=== PATIENT | female | born 1990 | race Two or more races ===

== ENCOUNTER → 2024-09-25 | Outpatient (CLI) | payer BC, SELFPAY ==
[2024-09-25 12:58] LABS: Misc Send Out* See Sep Rpt
[2024-09-25 14:15] LABS: Beta HCG,Quantitative 3420 mIU/mL (<5.0)
[2024-09-29 06:44] LABS: PTT-LA Screen 27 seconds (< OR = 40); dRVVT Screen 34 seconds (< OR = 45)
[2024-10-03 11:17] LABS: Cardiolipin Ab (IgA) <2.0 APL-U/mL; Cardiolipin Ab (IgG) <2.0 GPL-U/mL
[2024-10-05 06:57] LABS: Cardiolipin Ab (IgM) <2.0 MPL-U/mL; Progesterone,LC/MS* 3.3 ng/mL
== END | disposition home or self-care (01) ==
LOC: COPL 11:56
PROVIDERS: Referring Provider Specialist; Visit Provider Specialist
DX: Z01.89 Encounter for other specified special examinations (principal)
CPT/HCPCS: 36415; 83516; 84144; 84702; 85613; 85730; 86146; 86147; 88230; 88262

== ENCOUNTER → 2024-10-05 | Outpatient (CLI) | payer BC, SELFPAY ==
[2024-10-05 16:27] LABS: Misc Send Out* See Sep Rpt
[2024-10-05 17:45] LABS: Beta HCG,Quantitative 17 mIU/mL (<5.0)
[2024-10-15 03:04] LABS: Cardiolipin Ab (IgA) <2.0 APL-U/mL; Cardiolipin Ab (IgG) <2.0 GPL-U/mL
[2024-10-15 07:20] LABS: B2-Glycoprotein I Ab IgA <2.0 U/mL; B2-Glycoprotein I Ab IgG <2.0 U/mL; B2-Glycoprotein I Ab IgM <2.0 U/mL; Cardiolipin Ab (IgM) <2.0 MPL-U/mL; Progesterone,LC/MS* <0.1 ng/mL
== END | disposition home or self-care (01) ==
LOC: COPL 15:57
PROVIDERS: Referring Provider Specialist; Visit Provider Specialist
DX: Z34.81 Encounter for supervision of other normal pregnancy, first trimester (principal); O26.20 Pregnancy care for patient with recurrent pregnancy loss, unspecified trimester
CPT/HCPCS: 36415; 84144; 84702; 85613; 85730; 86146; 86147

== ENCOUNTER 2025-06-14 11:10 | Outpatient (AMB) | payer BC, SELFPAY ==
[2025-06-14 11:47] VITALS: BP 135/82; PULSE 68; RESP 18; TEMP 36.5; O2SAT 95; BMI 40.8
--- NOTE | 2025-06-14 11:47 | AMB.GYNCLNOT ---
Vital Signs 06/14/25 11:47 Height 1.55 m Height Method Stated Weight 97.976 kg Weight Measurement Method Standing Scale BMI 40.8 BP 135/82 H Blood Pressure Source Automatic Cuff Blood Pressure Location Right Upper Arm Position Sitting Respiration 18 Pulse 68 Pulse Source Monitor Temp 97.7 F Temp Source Temporal Artery Scan Pulse Oximetry (%) 95 Oxygen Delivery Method Room Air Allergies/Home Meds Allergies & Medications Allergies NKA* Allergy (Uncoded 06/14/25 11:53) Medication Reconciliation letrozole 2.5 mg tablet 2.5 mg PO QDAY 5 days #5 tabs 06/14/25 [Rx] metformin 500 mg tablet 500 mg PO QDAY 90 days #90 tabs 06/14/25 [Rx] Intake Visit Data Collection New Patient or Established: Established Patient (seen at [facility] within 3 years) Reason for Visit:: FERTILITY Seen by Clinical Staff ONLY (RN/MA): No Snow Plow Operator Required: No Do You Feel Safe at Home: Yes Authorities Contacted: N/A PCP or OBGYN visit in last 3 months: No Hx Now: No Are you currently on any form of Control: No Last menstrual period: 04/27/25 Pain Present Currently: No Pain Scale Used: Church-Rodriguez/Numerical Pain scale:: 0 Smoking Status Smoking Status: Never smoker Immunizations Flu Vaccine in the Last 12 Months: No Flu Vaccine Exclusion Criteria: 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 Internship History Menstrual regularity: regular Flow: normal Monthly: Yes How many days does period last: 4 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 1. Little interest or pleasure in doing things: not at all 2. Feeling down, depressed, or hopeless: not at all Total score: 0 PHQ-9 3. Trouble falling or staying asleep, or sleeping too much: Not at all 4. Feeling tired or having little energy: Not at all 5. Poor appetite or overeating: Not at all 6. Feeling bad about yourself - or that you are a failure or have let yourself or your family down: Not at all 7. Trouble concentrating on things, such as reading the newspaper or watching television: Not at all 8. Moving or speaking so slowly that other people could have noticed? - Or the opposite - being so fidgety or restless that you have been moving around a lot more than usual: not at all 9. Thoughts that you would be better off or of hurting yourself in some way: Not at all Total score: 0 If you checked off any problems, how difficult have these problems made it for you to do your work, take care of things at home, or get along with other people?: not difficult at all Source: Developed by Drs. Jose Steve, Candida Moody, Mauricio South and colleagues, with an educational alicia from [employer]. Depression screen completed yes Social History Living Situation History Marital Status: Lives With: Family Housing: House Tobacco History Smoking Status: Never smoker Second Hand Smoke Exposure: No Alcohol History Alcohol Intake: Current Domestic Abuse History Do You Feel Safe at Home: Yes History of Present Illness HPI Narrative Trying to get for a couple of years, 2 early miscarriages Patient is a [id number] presenting for fertility consultation after trying to conceive for a couple of years with two early miscarriages since her IUD removal in 2021. The patient has one child delivered at 37 weeks in 2011, conceived naturally. She had an IUD for 10 years which was removed in 2021, and has not used control since then. She has experienced two first trimester losses since the IUD removal. She has been actively trying to conceive for over a year using LH testing kits that sync with her phone, tracking cervical mucus, and timing intercourse accordingly. Her menstrual periods are irregular and described as different. This month she did not have a period but had tissue come out. She reports improved LH peaks after starting metformin 500 mg once daily, which was prescribed by a nurse practitioner for insulin resistance. The patient takes self-researched fertility supplements including a fertility booster, inositol, fish oil, and NAC, stating she wants her eggs to be healthy given her age. She is adherent to the prescribed metformin regimen. She engages in weightlifting for exercise. She had a pelvic ultrasound after her September miscarriage at [facility] with Dr. Oliver, who performed a full panel of tests. Her partner has had sperm testing which showed normal count and 62% motility. Medical History: - Insulin resistance, diagnosed by nurse practitioner Obstetric History: - GTPAL: G3 T1 L1 - Two early miscarriages in the first trimester since 2021 - Delivered one child at 37 weeks gestation in 2011, conceived naturally Medications: - Fertility booster supplement - Inositol - Fish oil - NAC (N-acetylcysteine) - Metformin 500 mg daily Social History: - Engages in weightlifting for exercise Diagnostic Test Results and Labs: - Pelvic ultrasound (September 2023): Performed at [facility] with Dr. Oliver following miscarriage - AMH: 2.9 (good ovarian reserve) - FSH: Normal - LH: Normal - Prolactin: Normal - Hemoglobin A1c: 5.3 - Lupus panel: Negative - Cardiolipin IgG: Negative - Cardiolipin IgA: Negative - Cardiolipin IgM: Negative - Progesterone: 3.3 - Beta-HCG: Performed after miscarriage - Partner's sperm analysis: Normal count, motility 62% Exam General General Appearance: alert, in no apparent distress and healthy appearing Head Head exam: atraumatic Neck Neck exam: Present normal inspection and trachea midline Chest Chest inspection: Present normal inspection and symmetric chest wall rise External exam: Present normal external exam; Absent tenderness Neuro Neurological exam: Present oriented X3 Psych Psychiatric exam: Present normal affect and normal mood Office Procedures [facility] Clinic LOC & Office Proc's Nursing/Assessment Patient Status: Established Patient OB Clinic Nursing Assessment: Medication Reconciliation, Update PMH in EMR and Vital Signs OB Clinic Coordination of Care: Complex Care and Chronic Disease 1-5, Education Complex Pt/Fam, Consent,records obtained, informed consent, Lab and Imaging orders, Results/Orders obtained and Staff clarify orders Established Patient Charge Established Patient Point Assignment: 110 Established Patient Point Charge: EP Level 3 (80-115) Results Urine HCG Urine HCG Negative Last Edit by Arabella Castillo MA on 06/14/25 12:01 Assessment & Plan Diagnosis / Problem List (1) Anovulation: Status: Acute Plan Infertility with recurrent loss Assessment: Patient has been trying to conceive for over a year with two first trimester losses since IUD removal in 2021. She has been tracking ovulation with LH test kits and cervical mucus monitoring. Laboratory workup shows good ovarian reserve with AMH 2.9, normal FSH, LH, and prolactin levels. Lupus panel is negative including cardiolipin antibodies. A1c is 5.3. She has insulin resistance and irregular periods, currently taking metformin 500 mg daily with improved LH peaks noted. Recent ultrasound performed at [facility] showed normal findings. Partner's sperm analysis shows normal count with 62% motility. Plan: - Start letrozole for ovulation induction, beginning on day 3 of menstrual cycle for 5 days - Continue metformin 500 mg once daily with largest meal to avoid hypoglycemia - Check for ovulation on cycle day 12 and time intercourse within 24-48 hours of LH peak - Partner to refrain from intercourse the day before ovulation to optimize sperm count - Partner recommendations: maintain health, avoid alcohol, take multivitamin with zinc, consider smoking cessation - Recommend cardiovascular exercise with goal of 2 hours of zone 2 exercise per week for metabolic health - Follow-up appointment in 2 months for fertility reassessment - Prescription for letrozole to be sent to [facility]
== END 2025-06-14 12:04 | disposition home or self-care (01) ==
LOC: HODSOBC 11:10
PROVIDERS: PCP Nurse Practitioner Family; Referring Provider Nurse Practitioner Family; Supervising Provider Obstetrics & Gynecology; Visit Provider Obstetrics & Gynecology
DX: N97.0 Female infertility associated with anovulation (principal); N96 Recurrent pregnancy loss; E88.819 Insulin resistance, unspecified; Z79.84 Long term (current) use of oral hypoglycemic drugs
CPT/HCPCS: 99213; G0463